=== PATIENT | male | born 1970 | race Caucasian/White ===

== ENCOUNTER → 2024-04-11 08:49 | Outpatient (REF) | payer SELFPAY | LOC: RAD 08:49 | PROVIDERS: ATTENDING PHYSICIAN Internal Medicine Cardiovascular Disease; FAMILY PHYSICIAN Family Medicine | DX: I10 Essential (primary) hypertension (principal); E78.00 Pure hypercholesterolemia, unspecified | CPT/HCPCS: 75571 ==

== ENCOUNTER 2024-04-27 13:18 | Inpatient (IN) | payer BC, SELFPAY ==
[2024-04-27] VITALS (18 sets, daily range): BP systolic 119–145; BP diastolic 67–75; BMI 30.8; BMI 29.9
--- NOTE | 2024-04-27 10:36 | ED.GENMED ---
History of Present Illness
General
Chief Complaint: Abnormal Lab Value
Source: patient and physician (Dr. Villalba)
Exam Limitations: none
Time Seen by Provider: 04/27/24 09:59
Nursing documentation reviewed up to this point in time: agreed with
History of Present Illness
History of Present Illness:
53 yo male w h/o HTN, HLD, BPH, sleep apnea w CPAP, presents for low Hgb. Had out pt labs by PCP Dr. Villalba, Dr Villalba called to report Hgb of 4.6.
Pt denies change in color of stools. Pt has been 'struggling for the past year with shortness of breath if I go up stairs, walk up an incline and I get lightheaded too.' Has been fatigued, no energy past few weeks. Appetite poor, lost 20 lbs in past
6 months. He notes his ankles are swollen by the end of the day in past week.
Denies Chest pain, abd pain.
Did have significant LE swelling after plane ride in February flying to [facility] 'my toes were like hotdogs.' This subsided after 2 days.
Had complete cardiac w/u 5 months ago, echo, nuclear stress test and states his elementary secretary told him no concerns.
Past History
Past History
ED Past Medical History: HTN, Hypercholesterolemia and Other (BPH, sleep apnea uses CPAP)
ED Past Surgical History: Orthopedic
Review of Systems
Review of Systems
Allergies reviewed?: Yes
All Other Systems: ROS reviewed and negative except as documented in HPI and ROS
Constitutional: Reports fatigue; Denies fever
Respiratory: Denies cough or trouble breathing (PHIPPS)
Cardiac: Denies chest pain or palpitations
ABD/GI: Denies abdominal pain, nausea, vomiting or diarrhea
: Reports frequency; Denies dysuria
Musculoskeletal: Reports edema (mild ankle swelling)
Skin: Reports no symptoms
Neurological: Reports other (lightheaded at times); Denies headache
Phy Exam
Physical Exam
Physical Exam:
GENERAL: No acute distress. A&Ox3.
CONSTITUTIONAL: Afebrile.
EYES: clear, conjunctivae pale
ENMT: Pale, moist mucus membranes, Pharynx nl
RESPIRATORY: Regular respirations, nonlabored, lungs clear.
CARDIOVASCULAR: Regular rate and rhythm, no murmurs, no rubs.
GI: Soft, nontender, normal BS
Rectal: No stool in rectal vault, mucus on gloved finger hematest negative
MUSCULOSKELETAL: Moves with ease. Well perfused.
SKIN: Warm, dry, pale
PSYCH: Normal mood and affect. Well kept, interactive and appropriate
NEUROLOGIC: Awake, alert and oriented. No focal neurological deficits
Course
Orders/Labs/Results
Orders:
Orders
04/27/24 Breakfast
NPO
Allow oral meds: Yes
Allow clear liquids: Sips of Clears
04/27/24 10:36
Type+Screen Urgent
Complete Blood Count/With Diff Urgent
Comprehensive Metabolic Panel Urgent
Folate Urgent
Comment: ADDON
Iron Urgent
Comment: ADD ON
Total Iron Binding Urgent
Comment: ADD ON
Vitamin B12 Urgent
Comment: ADDON
04/27/24 10:43
Electrocardiogram (*1) Urgent
Reason for Study: Fatigue / Weakness
EKG- Treatment ONCE
04/27/24 11:07
ABO2 Urgent
BBK Wristband Number:
Associate notified that ABO2 has been ordered: [id number]
Date: 04/27/24
Time: 10:59
Shell Coremaker ID: [id number]
04/27/24 11:26
* Blood Bank Products Urgent
Blood Bank Products: *Packed RBC Leuko(PRBC's)
Quantity: 2
Transfuse Today: Yes
Reason: Anemia
04/27/24 11:27
IV Insert/Care/Rem.- Treatment PRN
04/27/24 12:03
Add On- LAB Urgent
Tests Added?: Iron, total iron binding capacity
04/27/24 12:28
Admit/Transfer Patient As Directed
Co-Sign Provider:
Level of Care: Inpatient admission
Assign to:: Telemetry
Physician / Group: isabel
Diagnosis: anemia
Reason for Telemetry: Arrhythmia
Date to Stop Telemetry: 04/30/24
Time to Stop Telemetry: 11:00
Reason for Hospitalization: anemia
Expected length of stay greater than two midnights?: Yes
ELOS- Estimated Length of Stay in days: 2
I certify the patient meets the requirements for IP care: Yes
PRN Pain Medication Management As Directed
May give lesser potent ordered pain med per pt: Yes
preference::
Protocol:: Medication orders for pain may be administered in a
manner that supports deferring to patient preference
when the pt is:
- Requesting an ordered lesser potent pain medication.
Least to most potent pain medications are defined
as: acetaminophen < NSAID < tramadol < opioids
(morphine, oxycodone, hydromorphone).
- Requesting a lesser dose of the same medication IF
ORDERED.
- Requesting a less intrusive route of administration
if both routes are prescribed by the provider (PO <
IV).
04/27/24 12:30
Code Status As Directed
Resuscitation Status: Full Code
04/27/24 14:44
Pantoprazole [Protonix IV] 40 mg IV BID
04/27/24 14:44
GASTROINTESTINAL CONSULT Routine
Consulting Provider: Tanya Miranda
Was physician already notified: Yes
Activity As Directed
Activity Level: As Tolerated
Pneumatic Compression Sleeves As Directed
Type: Knee high
Vital Signs As Directed
Frequency: Per unit guidelines
US Periph Venous LOWER Ext Dada Routine
Comment:
Reason For Exam: swelling , travel
DX Deep Vein Thrombosis Video Routine
04/27/24 20:00
Carvedilol [Coreg] 12.5 mg PO BID
04/27/24 22:00
Trazodone [Desyrel] 150 mg PO HS
04/28/24 06:00
Complete Blood Count/With Diff IN AM
Comprehensive Metabolic Panel IN AM
04/28/24 08:00
Amlodipine [Norvasc] 5 mg PO DAILY
Ascorbic Acid [Vitamin C] 500 mg PO DAILY
Multivitamin [Theragran] 1 tablet PO DAILY
Rosuvastatin Calcium [Crestor] 40 mg PO DAILY
Tamsulosin [Flomax] 0.4 mg PO DAILY
tadalafil 5 mg PO DAILY
04/30/24 11:00
DC Protocol for Telemetry ONCE
Abnormal Lab Results
04/27/24
10:36
WBC 4.5 L 10^3/uL
(4.8-10.8)
RBC 2.95 L 10^6/uL
(4.70-6.10)
Hgb 4.6 L* g/dL
(13.0-18.0)
Hct 17.7 L* %
(39.0-52.0)
MCV 60.0 L fL
(80.0-94.0)
MCH 15.6 L pg
(27.0-31.0)
MCHC 26.0 L g/dL
(33.0-37.0)
RDW 21.2 H %
(11.5-14.5)
Absolute Lymphs (auto) 0.9 L 10^3/uL
(1.2-3.4)
Lymphocytes % 20.4 L %
(20.5-51.1)
Glucose 100 H mg/dl
(70-99)
Iron 24 L ug/dl
(49-181)
TIBC 476 H ug/dl
(261-462)
% Saturation 5 L %
(20-50)
Crossmatch IS Only See Detail
04/27/24 10:36
04/27/24 10:36
Vital Signs
Initial and Last Documented VS:
Initial Vital Signs
Temp Pulse Resp BP Pulse Ox
98.5 F 77 18 119/71 100
04/27/24 09:41 04/27/24 09:41 04/27/24 09:41 04/27/24 09:41 04/27/24 09:41
Last Documented Vital Signs
Temp Pulse Resp BP Pulse Ox
98.1 F 67 18 144/74 99
04/27/24 14:40 04/27/24 14:40 04/27/24 14:40 04/27/24 14:40 04/27/24 14:30
MDM/Problems Addressed
Differential Diagnosis Includes:
GI bleed, iron deficiency, malignancy
MDM/Problems Addressed:
53 yo male w h/o HTN, HLD, BPH, sleep apnea w CPAP, presents for low Hgb. Had out pt labs by PCP Dr. Villalba, Dr Villalba called to report Hgb of 4.6.
Pt denies change in color of stools. Pt has been 'struggling for the past year with shortness of breath if I go up stairs, walk up an incline and I get lightheaded too.' Has been fatigued, no energy past few weeks. Appetite poor, lost 20 lbs in past
6 months. He notes his ankles are swollen by the end of the day in past week.
Denies Chest pain, abd pain.
Did have significant LE swelling after plane ride in February flying to [facility] 'my toes were like hotdogs.' This subsided after 2 days.
Had complete cardiac w/u 5 months ago, echo, nuclear stress test and states his elementary secretary told him no concerns.
11:15 AM:
Hemoglobin 4.6 indices indicate a chronic element with microcytic hypochromic anemia
Patient is hemodynamically stable, no sign of active bleeding
Plan: Admit, symptomatic chronic anemia, 2 U PRBC's ordered
Hospitalist notified of admission.
*Critical Care Note
Total Time (30-74mins, 75-104mins- exclusive of procedures): Not Applicable
ED Attending Note
-
Portions of this chart may have been created with voice recognition software.� Occasional wrong word or��sound alike� substitutions may have occurred due to the inherent limitations of voice recognition software.
Discharge Plan
Departure
Patient Disposition: Admit
Date of Disposition: 04/27/24
Time of Disposition: 11:37
Admit to: Med/Surg
Presentation/result/management discussed w/ accepting MD/DO: Hospitalist
Condition: Fair
Discharge Problem:
Severe anemia
Interventions
Interventions:
*Risk Screen - Suicide Last Done: 04/27/24 09:41
*General Assessment Last Done: 04/27/24 09:41
*Neglect/Abuse Screening Last Done: 04/27/24 09:41
ED- Fall Risk Assessment Last Done: 04/27/24 12:19
*ED COVID-19 Vaccine History Last Done: 04/27/24 11:03
*Nursing Disposition Last Done: 04/27/24 14:42
Discharge Date and Time
Discharge Date/Time: 04/27/24 14:44
[2024-04-27 10:58] LABS: % Basophils 0.9 % (0-2); % Eosinophils 3.3 % (0-6); % Immature Granulocytes 0.4 % (0-0.5); % Lymphocytes 20.4 % (20.5-51.1); % Monocytes 7.1 % (1.7-9.3); % Neutrophils 67.9 % (42.2-75.2); Absolute Eosinophils 0.2 10^3/uL (0-0.7); Absolute Lymphocytes 0.9 10^3/uL (1.2-3.4); Absolute Monocytes 0.3 10^3/uL (0.1-0.6); Absolute Neutrophils 3.1 10^3/uL (1.4-6.5); Hematocrit 17.7 % (39.0-52.0); Hemoglobin 4.6 g/dL (13.0-18.0); Mean Corpuscular Hgb 15.6 pg (27.0-31.0); Mean Platelet Volume 9.6 fL (7.4-10.4); Nucleated Red Blood Cells % 0.7 % (-); Platelet Count 242 10^3/uL (130-400); Red Blood Cell Count 2.95 10^6/uL (4.70-6.10); Red Cell Dist. Width 21.2 % (11.5-14.5); White Blood Cell Count 4.5 10^3/uL (4.8-10.8)
[2024-04-27 10:59] LABS: ALT (SGPT) 21 U/L (0-50); AST (SGOT) 20 U/L (17-59); Albumin 4.4 g/dl (3.5-5.0); Alkaline Phosphatase 50 U/L (38-126); Blood Urea Nitrogen 15 mg/dl (9-20); Calcium 8.8 mg/dl (8.4-10.2); Carbon Dioxide 23 mmol/L (22-30); Chloride 101 mmol/L (98-107); Glucose 100 mg/dl (70-99); Potassium 4.3 mmol/L (3.5-5.1); Sodium 135 mmol/L (135-145); Total Bilirubin 0.4 mg/dl (0.2-1.3); Total Protein 6.7 g/dl (6.3-8.2); eGFR > 60.00
[2024-04-27 11:25] LABS: Anisocytosis 2+; Hypochromasia 3+; Macrocytosis 2+; Normal RBC Morphology No
[2024-04-27 11:26] LABS: Stomatocytes Occasional; Tear Drop Red Blood Cells 2+
[2024-04-27 12:29] LABS: Iron 24 ug/dl (49-181)
--- NOTE | 2024-04-27 12:33 | HPS.HSE ---
Addendum entered and electronically signed by Nakia Sanchez MD 04/27/24 12:42:
Patient with bilateral lower extremity venous swelling at nighttime. Likely due to venous insufficiency. No asymmetric swelling or pain in the leg to suggest DVT at this time. However we will check venous ultrasound given recent traveling.
Original Note:
Family Physician
-
Family Physician: Jermain Villalba
Chief Complaint
-
shortness of breath
History of Present Illness
53-year-old male past medical history of hypertension, hyperlipidemia, BPH, sleep apnea on CPAP presenting with low hemoglobin. Patient had outpatient labs by primary care physician who called to report hemoglobin 4.6. Patient denies change in
color stools. He has been having shortness of breath for the past year with exertion and lightheadedness. He has been fatigued with no energy. Denies chest pain and denies abdominal pain. He has lost 20 pounds in the past 6 months.
His last colonoscopy was at the age of 49 was 4 years ago and unremarkable.
His ankles are swollen by the end of the day in the past week. He did have significant lower extremity edema after plane ride in February flying to [facility]. This subsided after 2 days.
He had complete cardiac workup 5 months ago due to symptoms with nuclear stress test which was unremarkable.
He drinks alcohol occasionally. He smoked briefly in college.
His mother had colon cancer at the age of 78. His father had bladder cancer.
Medical History
Past Medical History
Past Medical History: Reports Other ( hypertension, hyperlipidemia, BPH, sleep apnea on CPAP)
Past Surgical History: Reports Other (hand surgery )
Social History
Tobacco: Former Smoker
Alcohol: Occasional
Drug: None
Family History
Family History: Not pertinent
Allergies / Home Medications
Allergies reflects when Allergies were last updated in [employer].
Home Medications with original date entered in [employer]
Allergy/Medication List:
Allergies
Allergy/AdvReac Type Severity Reaction Status Date / Time
No Known Allergies Allergy Verified 04/27/24 09:41
Home Medications
amlodipine 5 mg tablet 5 mg PO DAILY 04/27/24
ascorbic acid (vitamin C) 500 mg tablet (Vitamin C) 500 mg PO DAILY 04/27/24
carvedilol 12.5 mg tablet 12.5 mg PO BID 04/27/24
rosuvastatin 40 mg tablet 40 mg PO DAILY 04/27/24
tadalafil 5 mg tablet 5 mg PO DAILY 04/27/24
tamsulosin 0.4 mg capsule 0.4 mg PO DAILY 04/27/24
therapeutic multivitamin 1 tab PO DAILY 04/27/24
trazodone 150 mg tablet 150 mg PO HS 04/27/24
Review of Systems
-
History Source: Patient
A 12 point ROS was completed and negative except as noted: Yes
Constitutional: Reports No Symptoms
EENT: Reports No Symptoms
Respiratory: Reports See HPI
Cardiac: Reports See HPI
Abdomen/GI: Reports See HPI
: Reports No Symptoms
Musculoskeletal: Reports No Symptoms
Skin: Reports No Symptoms
Neurological: Reports No Symptoms
Endocrine: Reports No Symptoms
Hematologic/Lymphatic: Reports No Symptoms
Psych: Reports No Symptoms
Physical Exam
Vital Signs
Vital Signs
Temp Pulse Resp BP Pulse Ox
98.5 F 65 14 125/71 98
04/27/24 09:41 04/27/24 12:15 04/27/24 12:15 04/27/24 12:00 04/27/24 12:15
Physical Exam
General: Well Developed, Well Nourished and No Apparent Distress
HEENT: NormoCephalic, Moist mucous membranes and Atraumatic
Respiratory: Clear
Cardiac: S1/S2 and Regular Rhythm; No Murmur or Rub
GI: Soft, Non Tender, Non Distended and Normal Bowel Sounds; No Organomegaly
Rectal: Deferred by Provider
Musculoskeletal: No Clubbing, No Cyanosis and No Edema
Skin: No Rash
Neuro: Nonfocal/grossly intact
Laboratory Results
-
04/27/24 10:36
04/27/24 10:36
Laboratory Results
Total Bilirubin 0.4 mg/dl (0.2-1.3) 04/27/24 10:36
AST 20 U/L (17-59) 04/27/24 10:36
ALT 21 U/L (0-50) 04/27/24 10:36
Alkaline Phosphatase 50 U/L (38-126) 04/27/24 10:36
Data Reviewed
-
Lab Data: Labs Reviewed by me
Old Records: Reviewed
Impression/Plan
-
IMPRESSION:
PLAN:
# Symptomatic chronic blood loss microcytic anemia/weight loss concern for underlying GI malignancy
-Hemoglobin 4.6
-Type and screen
-2 units blood
-Protonix 40 IV twice daily
-N.p.o. past midnight
-GI consulted
-Check iron studies, B12 and folate
Essential hypertension
-Continue amlodipine
-Continue Coreg
Hyperlipidemia
-Continue statin
BPH
-Continue tadalafil, tamsulosin
Obstructive sleep apnea
-On CPAP
Insomnia
-Continue trazodone
Full code
DVT prophylaxis�SCDs
Clear liquid diet
[2024-04-27 12:38] LABS: Percent Saturation 5 % (20-50); Total Iron Binding Capacity 476 ug/dl (261-462)
--- NOTE | 2024-04-27 15:00 | CON.GI ---
Consultation
-
Date/Time Consultation Requested: 04/27/2024
Date/Time Consultation Performed: 04/27/2024
Requesting Provider: Hospitalist
Performing Provider: Dr. Miranda
Reason for Consultation: Severe microcytic anemia with no overt bleeding
Medical History
Chief Complaint / HPI
Chief Complaint: Abnormal blood work and significant fatigue
History of Present Illness:
History is given both by the patient and his who is an RN
Ferny is a 53-year-old male with history of BPH, otherwise healthy who his mother had colon cancer who is being admitted for severe microcytic anemia who is otherwise stable with no overt bleeding. His labs are consistent with severe microcytic
iron deficiency anemia. Review of his portal from his phone shows a hemoglobin of 10.4 with a low MCV in the summer 2022 that was done in the emergency room while having a kidney stone. Last labs I could find outpatient in 2019 showed normal
hemoglobin of 14. He was unaware of being anemic. His says that he has not been himself since December being severely fatigued even short of breath going up stairs who underwent an outpatient cardiac workup that was unremarkable including an
echo and calcium scoring. This was done at [place].
He denies any GI symptoms with no significant heartburn, dysphagia, abdominal pain. He has noticed mild decrease in appetite with a 20 pound weight loss over the past few months. He did have what sounds like a norovirus the beginning of March.
His bowel movements are otherwise regular brown with no overt bleeding. Denies any overt bleeding from any other source. He states his sister is also iron deficient. No known thalassemia's.
His last colonoscopy done about 4 years ago he states was completely normal and he was told 10 years repeat. Since then his mother was diagnosed with colon cancer and he would have been due next year.
Past Medical History
Past Medical History: Other (Hypertension, BPH, HAKEEM on CPAP)
Past Surgical History: Orthopedic
Social History
Tobacco: Former Smoker
Alcohol: Occasional
Drug: None
Personal:
Living: With Family
Family History
Family History: Cancer (Mother with colon cancer)
Allergies / Home Medications
Allergy/AdvReac Type Severity Reaction Status Date / Time
No Known Allergies Allergy Verified 04/27/24 09:41
�Medication �Instructions �Recorded
amlodipine 5 mg tablet 5 mg PO DAILY Blood Pressure 04/27/24
ascorbic acid (vitamin C) 500 mg 500 mg PO DAILY Supplement 04/27/24
tablet (Vitamin C)
carvedilol 12.5 mg tablet 12.5 mg PO BID Blood Pressure 04/27/24
rosuvastatin 40 mg tablet 40 mg PO DAILY High Cholesterol 04/27/24
tadalafil 5 mg tablet 5 mg PO DAILY BPH 04/27/24
tamsulosin 0.4 mg capsule 0.4 mg PO DAILY BPH 04/27/24
therapeutic multivitamin 1 tab PO DAILY Supplement 04/27/24
trazodone 150 mg tablet 150 mg PO HS mental health/sleep 04/27/24
Review of Systems
-
History Source: Patient and Family
All other systems: A 12 pt ROS was Negative except as stated above in HPI
Vital Signs
Temp Pulse Resp BP Pulse Ox
98.9 F 77 20 142/73 100
04/27/24 14:54 04/27/24 14:54 04/27/24 14:54 04/27/24 14:54 04/27/24 14:54
Physical Exam
Exam
General: Well Developed, Well Nourished, No Apparent Distress and Comfortable
HEENT: Anicteric
Respiratory: Clear
Cardiac: S1/S2
GI: Soft, Non Tender, Non Distended and Normal Bowel Sounds
Neuro: AO x 3
Psych: Calm
Results
WBC 4.5 10^3/uL (4.8-10.8) L 04/27/24 10:36
Hgb 4.6 g/dL (13.0-18.0) L* 04/27/24 10:36
Hct 17.7 % (39.0-52.0) L* 04/27/24 10:36
MCV 60.0 fL (80.0-94.0) L 04/27/24 10:36
Plt Count 242 10^3/uL (130-400) 04/27/24 10:36
Absolute Neuts (auto) 3.1 10^3/uL (1.4-6.5) 04/27/24 10:36
Sodium 135 mmol/L (135-145) 04/27/24 10:36
Potassium 4.3 mmol/L (3.5-5.1) 04/27/24 10:36
Chloride 101 mmol/L (98-107) 04/27/24 10:36
Carbon Dioxide 23 mmol/L (22-30) 04/27/24 10:36
BUN 15 mg/dl (9-20) 04/27/24 10:36
Creatinine 0.9 mg/dL (0.7-1.3) 04/27/24 10:36
Calcium 8.8 mg/dl (8.4-10.2) 04/27/24 10:36
Total Bilirubin 0.4 mg/dl (0.2-1.3) 04/27/24 10:36
AST 20 U/L (17-59) 04/27/24 10:36
ALT 21 U/L (0-50) 04/27/24 10:36
Alkaline Phosphatase 50 U/L (38-126) 04/27/24 10:36
Diagnostic Image Results:
Reviewed CT scan without contrast from [facility] from October 2022 showing no significant abnormalities other than nephrolithiasis
Last GI note also from [facility] from Dr. Avila in 2019 stating patient had no increased risk factors for early colonoscopy
Prior GI Procedures:
EGD:
Colonoscopy: I do not have the records but patient states 4 years ago done with [facility]. He was told it was normal with a 10-year repeat
Assessment / Plan
-
Ferny is a 53-year-old male with history of hypertension, mother had CRC here with symptomatic severe iron deficiency anemia with a hemoglobin of 4.6, MCV in the 60s with no overt bleeding
Outpatient labs -reviewed through [facility] portal into [facility] 04/26/2024 B12 571, folate greater than 20 normal TSH, sed rate 38, normal PSA, hemoglobin 4.6, MCV 62, platelets 268, normal LFTs including bilirubin 0.4, creatinine 1.0
Last hemoglobin from his portal was from 2022 with a hemoglobin of 10, MCV low
Last hemoglobin was in 2019 of 14
# Symptomatic iron deficiency anemia with no overt bleeding and is hemodynamically stable. Symptoms are fatigue and shortness of breath on exertion. Brown stools
-- EGD and colonoscopy tomorrow
--Discussed that the etiology of iron deficiency anemia in an adult is a GI source until proven otherwise
--Patient's wanted hematology consult but I told her we would need to do the endoscopy and colonoscopy first. If those are negative he will need a capsule endoscopy outpatient
-- Clear liquids
-- Patient not on PPI at home with no GI symptoms, once daily PPI is fine
-- Currently getting 2 units of blood
-- Ordered IV iron
I have explained to the patient the procedure of colonoscopy, as well as its potential risks, which are infection, approximately 3 and 1000 chance of bleeding, perforation, oversedation, missing small lesions which is approximately 3 to 5%, and
injuring teeth, lips, or eyes. All of these are rare.
Reviewed outpatient records, discussed with patient and who is an RN at the bedside. Went through his portal with him and his . Spent a total of 72 minutes
Data Reviewed
-
CT Scan: Report Reviewed by me
-
-
Thank you for consultation and allowing me to participate in the patient's care. Please call the site controller GI physician during the after hours with any questions or concerns.
[2024-04-27] MEDS: NSS (PRESERVATIVE FREE) 10 ML IV ×2 (15:31→21:57)
[2024-04-27] MEDS: PROTONIX IV 40 MG IV ×2 (15:31→21:57)
[2024-04-27 15:52] LABS: Folate > 20.0 ng/ml (2.76-20); Vitamin B12 503 pg/ml (239-931)
[2024-04-27] MEDS: NULYTELY SOLUTION 4 LITERS PO (17:45)
[2024-04-27] MEDS: COREG 12.5 MG PO (21:57)
[2024-04-27] MEDS: DESYREL PO (23:00)
[2024-04-28] VITALS (16 sets, daily range): BP systolic 117–144; BP diastolic 61–91; BMI 29.9
[2024-04-28] MEDS: COREG 12.5 MG PO ×2 (07:54→20:39)
[2024-04-28] MEDS: THERAGRAN 1 TABLET PO (07:54)
[2024-04-28] MEDS: NORVASC 5 MG PO (07:54)
[2024-04-28] MEDS: CRESTOR 40 MG PO (07:54)
[2024-04-28] MEDS: PROTONIX IV 40 MG IV ×2 (07:54→20:40)
[2024-04-28] MEDS: NSS (PRESERVATIVE FREE) 10 ML IV ×2 (07:54→20:39)
[2024-04-28] MEDS: VITAMIN C 500 MG PO (07:54)
[2024-04-28] MEDS: FLOMAX 0.4 MG PO (07:54)
[2024-04-28 08:44] LABS: APTT 31.5 Sec (23.4-35.0); PT 14.7 Sec (11.4-14.6)
[2024-04-28 09:07] LABS: % Eosinophils 2.6 % (0-6); % Immature Granulocytes 0.2 % (0-0.5); % Lymphocytes 19.6 % (20.5-51.1); % Monocytes 6.5 % (1.7-9.3); % Neutrophils 70.1 % (42.2-75.2); Absolute Basophils 0.1 10^3/uL (0-0.2); Absolute Eosinophils 0.1 10^3/uL (0-0.7); Absolute Monocytes 0.3 10^3/uL (0.1-0.6); Absolute Neutrophils 3.4 10^3/uL (1.4-6.5); Hemoglobin 6.2 g/dL (13.0-18.0); Mean Corp Hgb Conc. 28.2 g/dL (33.0-37.0); Mean Corpuscular Volume 63.8 fL (80.0-94.0); Mean Platelet Volume 9.5 fL (7.4-10.4); Nucleated Red Blood Cells % 0.4 % (-); Platelet Count 226 10^3/uL (130-400); Red Blood Cell Count 3.45 10^6/uL (4.70-6.10); Red Cell Dist. Width 25.2 % (11.5-14.5); White Blood Cell Count 4.9 10^3/uL (4.8-10.8)
[2024-04-28 09:09] LABS: ALT (SGPT) 18 U/L (0-50); AST (SGOT) 20 U/L (17-59); Albumin 4.2 g/dl (3.5-5.0); Alkaline Phosphatase 48 U/L (38-126); Blood Urea Nitrogen 11 mg/dl (9-20); Calcium 8.8 mg/dl (8.4-10.2); Carbon Dioxide 23 mmol/L (22-30); Chloride 100 mmol/L (98-107); Estimated Creatinine Clearance 106 ml/min; Glucose 90 mg/dl (70-99); Potassium 4.4 mmol/L (3.5-5.1); Sodium 135 mmol/L (135-145); Total Bilirubin 0.6 mg/dl (0.2-1.3); Total Protein 6.5 g/dl (6.3-8.2); eGFR > 60.00
[2024-04-28] MEDS: OMNIPAQUE 50 ML PO (12:41)
--- NOTE | 2024-04-28 13:44 | CON.CRS ---
Consultation
-
Date/Time Consultation Requested: 04/28/2024, 11:45
Date/Time Consultation Performed: 04/28/2024, 14:30
Requesting Provider: Tanya Miranda DO
Performing Provider: Anders Domingo MD
Reason for Consultation: ascending colon mass
Medical History
-
Chief Complaint: anemia
History of Present Illness:
53-year-old male presents to [place] [facility] on 04/27/2024 due to a hemoglobin of 4.6 found on outpatient lab work. The patient has seen his primary care physician, Dr. Villalba, due to shortness of breath and lightheadedness for a year. He also
mentions he has had decreased energy over the past several weeks and lost 20 pounds in the past 6 months. Due to these findings, he had had an outpatient cardiac workup done at [place] that was all negative. His lab work prior to this showed a
hemoglobin of 10.4 back in 2022. His bowel movements are regular and unchanged. He denies any bleeding. His last colonoscopy was done 4 years ago and was normal. Since this was performed, his mother was diagnosed with colon cancer. He denies
previous abdominal surgeries. He is not on any blood thinners.
On arrival to our ER, his hemoglobin was 4.6. He was transfused with 2 units packed red blood cells. His hemoglobin today is 6.2. Given his severe anemia, gastroenterology was consulted and he underwent an endoscopy and colonoscopy today. The
endoscopy showed erosive gastropathy with no bleeding. 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 Given these findings, we have been
consulted for further surgical opinion.
Past Medical History
Past Medical History: HTN, Hypercholesterolemia and Other (bph, sleep apnea)
Past Surgical History: Orthopedic (hand)
Social History
Tobacco: Former Smoker
Alcohol: Occasional
Personal:
Family History
Family History: Cancer (mother - colon cancer (recent diagnosis))
Allergies / Home Medications
Allergy/AdvReac Type Severity Reaction Status Date / Time
No Known Allergies Allergy Verified 04/27/24 15:38
�Medication �Instructions �Recorded �Confirmed �Type
amlodipine 5 mg tablet 5 mg PO DAILY Blood Pressure 04/27/24 04/27/24 History
ascorbic acid (vitamin C) 500 mg 500 mg PO DAILY Supplement 04/27/24 04/27/24 History
tablet (Vitamin C)
carvedilol 12.5 mg tablet 12.5 mg PO BID Blood Pressure 04/27/24 04/27/24 History
rosuvastatin 40 mg tablet 40 mg PO DAILY High Cholesterol 04/27/24 04/27/24 History
tadalafil 5 mg tablet 5 mg PO DAILY BPH 04/27/24 04/27/24 History
tamsulosin 0.4 mg capsule 0.4 mg PO .DAILYHS BPH 04/27/24 04/28/24 History
therapeutic multivitamin 1 tab PO DAILY Supplement 04/27/24 04/27/24 History
trazodone 150 mg tablet 150 mg PO mental health/sleep 04/27/24 04/27/24 History
Review of Systems
-
History Source: Patient
All other systems: Negative unless noted
Constitutional: Weight Loss and Fatigue
Respiratory: Trouble Breathing
A 10 point review of systems was completed, and was negative except as per HPI.
Physical Exam
Vital Signs
Temp 98.3 F 04/28/24 13:13
Pulse 58 04/28/24 13:13
Resp Rate 18 04/28/24 13:13
Blood pressure 144/91 04/28/24 13:13
SaO2 97 04/28/24 12:13
04/27/24 04/28/24 04/29/24
06:59 06:59 06:59
Actual Weight 102.682 kg
Body Mass Index (BMI) 29.9
Lab Results / Allergies
04/28/24 08:20
04/28/24 08:20
WBC 4.9 10^3/uL (4.8-10.8) 04/28/24 08:20
Hgb 6.2 g/dL (13.0-18.0) L* D 04/28/24 08:20
Hct 22.0 % (39.0-52.0) L 04/28/24 08:20
Plt Count 226 10^3/uL (130-400) 04/28/24 08:20
Abs Immat Gran (auto) 0.0 10^3/uL (0-0.05) 04/28/24 08:20
Neutrophils % 70.1 % (42.2-75.2) 04/28/24 08:20
Allergy/AdvReac Type Severity Reaction Status Date / Time
No Known Allergies Allergy Verified 04/27/24 15:38
Physical Exam
General: Well Developed, Well Nourished and No Apparent Distress
GI: Soft, Non Tender and Non Distended
Skin: Warm and Dry
Neuro: AO x 3
Psych: Calm
Data Reviewed
-
Medical Tests (Nuc Med, Echo etc): Report Reviewed by me, Discussed with Physician and Discussed with Patient
Labs: Labs Reviewed by me, Discussed with Physician and Discussed with Patient
Old Records: Reviewed
Assessment / Plan
-
Assessment: 53-year-old male with several month history of weight loss, lightheadedness, and shortness of breath, presents to [facility] yesterday due to a hemoglobin of 4.6 on outpatient labs, status post 3 units packed red blood cells, and
found to have a partially obstructing mass in his ascending colon on colonoscopy
Plan:
-Plan is for a robotic right colectomy given his ascending mass. Arrangements are in place, likely next week.
-CEA pending
-We will follow-up biopsies from colonoscopy
-Await CT chest abdomen and pelvis for metastatic workup
-Remains on clear liquids
-Follow hemoglobin, transfuse as needed
-Discussed the above with patient and at bedside. Dr. Domingo to see later this afternoon for further surgerical discussion.
--- NOTE | 2024-04-28 13:53 | W.PN.HOSP.TC ---
Today's Communication/Plan
-
Monitor vital signs and see plan
Repeat hemoglobin later today and transfuse as necessary
Diet per GI
Colorectal surgery evaluation
[facility]
Discussed with spouse at bedside
Assessment / Plan
Assessment / Plan
General: Well Developed, Well Nourished and No Apparent Distress
HEENT: NormoCephalic, Moist mucous membranes and Atraumatic
Respiratory: Clear
Cardiac: S1/S2 and Regular Rhythm; No Murmur or Rub
GI: Soft, Non Tender, Non Distended and Normal Bowel Sounds
Musculoskeletal: No Clubbing, No Cyanosis and No Edema
Neuro: Nonfocal/grossly intact
Symptomatic chronic blood loss microcytic anemia/weight loss secondary to ascending colon mass
-Hemoglobin 4.6 on admission
Status post 4 units PRBC, continue to monitor hemoglobin
Status post colonoscopy 1/ with ascending colon obstructing mass. Colorectal surgery consulted
[facility] CT ordered
-Protonix 40 IV twice daily
GI following
CEA
Essential hypertension
-Continue amlodipine
-Continue Coreg
Hyperlipidemia
-Continue statin
BPH
-Continue tadalafil, tamsulosin
Obstructive sleep apnea
-On CPAP
Insomnia
-Continue trazodone
Full code
DVT prophylaxis�SCDs
I spent a total of 51 minutes with the patient or on the floor. More than 50% of this time involved counseling and coordination of care.
Anticipated Discharge: > 48 hours
Subjective/Interval History
-
Date of Service: April 28, 2024
denies pain
Objective Data
-
Labs:
Laboratory Results
04/28/24
08:20
WBC 4.9
Hgb 6.2 L* D
Hct 22.0 L
Plt Count 226
PT 14.7 H
INR 1.10
APTT 31.5
Sodium 135
Potassium 4.4
Chloride 100
Carbon Dioxide 23
BUN 11
Creatinine 0.9
Glucose 90
Calcium 8.8
Total Bilirubin 0.6
AST 20
ALT 18
Alkaline Phosphatase 48
Vital Signs:
Vital Signs
Temp Pulse Resp BP Pulse Ox
98.3 F 58 18 144/91 97
04/28/24 13:13 04/28/24 13:13 04/28/24 13:13 04/28/24 13:13 04/28/24 12:13
I&O
04/27/24 04/28/24 04/29/24
06:59 06:59 06:59
Intake Total 4460 / 4460 250 / 250
Balance 4460 / 4460 250 / 250
[2024-04-28] MEDS: FERRLECIT 110 MG IV (16:09)
--- NOTE | 2024-04-28 16:25 | CM ---
talent solutions manager reviewed patient's chart and met with patient and patient states he lives with his spouse in a multilevel home, patient is independent with adl's and ambulation, no dme, patient drives. Patient has CPAP at home.
PCP: Dr Villalba
Pharmacy; [facility] in [place]
Plan; Home no needs.
--- NOTE | 2024-04-28 17:07 | W.PN.UPDATE ---
Update Note
Progress Note Update
I spoke to the patient and regarding the CT results. They are aware.
I also spoke to Dr. Domingo about the case and he will see the patient after office hours.
Patient ok for low residue diet.
--- NOTE | 2024-04-28 17:41 | PTCARENOTE ---
Patient admitted in to room 420. AAOx3, able to make needs known. Oriented to unit and call rashid, instructed to ring for assistance, no OOB without help--Patient agreeable.
[2024-04-28] MEDS: DESYREL 150 MG PO (21:06)
[2024-04-28 21:13] LABS: Hematocrit 27.4 % (39.0-52.0); Hemoglobin 8.2 g/dL (13.0-18.0)
[2024-04-29 03:08] VITALS: BP 131/75
[2024-04-29 07:50] VITALS: BP 134/69
[2024-04-29 08:57] LABS: % Eosinophils 3.1 % (0-6); % Immature Granulocytes 0.6 % (0-0.5); % Lymphocytes 14.8 % (20.5-51.1); % Monocytes 6.6 % (1.7-9.3); % Neutrophils 73.9 % (42.2-75.2); Absolute Basophils 0.1 10^3/uL (0-0.2); Absolute Eosinophils 0.2 10^3/uL (0-0.7); Absolute Lymphocytes 0.8 10^3/uL (1.2-3.4); Absolute Monocytes 0.3 10^3/uL (0.1-0.6); Absolute Neutrophils 3.8 10^3/uL (1.4-6.5); Hematocrit 28.3 % (39.0-52.0); Hemoglobin 8.3 g/dL (13.0-18.0); Mean Corp Hgb Conc. 29.3 g/dL (33.0-37.0); Mean Corpuscular Hgb 19.7 pg (27.0-31.0); Mean Corpuscular Volume 67.2 fL (80.0-94.0); Nucleated Red Blood Cells % 0.4 % (-); Platelet Count 242 10^3/uL (130-400); Red Blood Cell Count 4.21 10^6/uL (4.70-6.10); Red Cell Dist. Width 26.4 % (11.5-14.5); White Blood Cell Count 5.1 10^3/uL (4.8-10.8)
[2024-04-29] MEDS: COREG 12.5 MG PO (09:03)
[2024-04-29] MEDS: NORVASC 5 MG PO (09:04)
[2024-04-29] MEDS: THERAGRAN 1 TABLET PO (09:04)
[2024-04-29] MEDS: CRESTOR 40 MG PO (09:04)
[2024-04-29] MEDS: VITAMIN C 500 MG PO (09:04)
[2024-04-29 09:59] LABS: Blood Urea Nitrogen 9 mg/dl (9-20); Calcium 9.1 mg/dl (8.4-10.2); Carbon Dioxide 24 mmol/L (22-30); Chloride 101 mmol/L (98-107); Estimated Creatinine Clearance 95 ml/min; Glucose 91 mg/dl (70-99); Potassium 4.3 mmol/L (3.5-5.1); Sodium 135 mmol/L (135-145); eGFR > 60.00
[2024-04-29] MEDS: FLOMAX PO (10:02)
[2024-04-29] MEDS: TYLENOL 650 MG PO (10:05)
[2024-04-29] MEDS: NSS (PRESERVATIVE FREE) 10 ML IV (10:29)
[2024-04-29] MEDS: PROTONIX IV 40 MG IV (10:29)
--- NOTE | 2024-04-29 12:12 | W.PN.HOSP.TC ---
Addendum entered and electronically signed by Al San MD 04/29/24 16:04:
Colorectal surgery discussed MRI findings with patient. Discharge today
Time of discharge 38 minutes
Original Note:
Today's Communication/Plan
-
monitor vitals
see plan
MRI abdomen
IV iron
monitor hgb
possible dc after MRI and IV iron if ok with colorectal
Assessment / Plan
Assessment / Plan
General: Well Developed, Well Nourished and No Apparent Distress
HEENT: NormoCephalic, Moist mucous membranes and Atraumatic
Respiratory: Clear
Cardiac: S1/S2 and Regular Rhythm; No Murmur or Rub
GI: Soft, Non Tender, Non Distended and Normal Bowel Sounds
Musculoskeletal: No Clubbing, No Cyanosis and No Edema
Neuro: Nonfocal/grossly intact
Symptomatic chronic blood loss microcytic anemia/weight loss secondary to ascending colon mass
-Hemoglobin 4.6 on admission
Status post 4 units PRBC, continue to monitor hemoglobin. now hgb 8.3. IV iron today
Status post colonoscopy 04/28 with ascending colon obstructing mass. Colorectal surgery follwoing. Patient will follow-up with colorectal surgery outpatient. Patient's spouse also making an appointment with [facility] CT noted; no clear evidence of metastatic disease. 1.3 cm low-attenuation intrahepatic space-occupying lesion. MRI pending
-Protonix 40 IV twice daily
GI following
CEA noted
Essential hypertension
-Continue amlodipine
-Continue Coreg
Hyperlipidemia
-Continue statin
BPH
-Continue tadalafil, tamsulosin
Obstructive sleep apnea
-On CPAP
Insomnia
-Continue trazodone
Full code
DVT prophylaxis�SCDs
Anticipated Discharge: Today
Subjective/Interval History
-
Date of Service: April 29, 2024
denies pain
Objective Data
-
Labs:
Laboratory Results
04/29/24
08:15
WBC 5.1
Hgb 8.3 L
Hct 28.3 L
Plt Count 242
Sodium 135
Potassium 4.3
Chloride 101
Carbon Dioxide 24
BUN 9
Creatinine 1.0
Glucose 91
Calcium 9.1
Vital Signs:
Vital Signs
Temp Pulse Resp BP Pulse Ox
98.5 F 63 18 134/69 94
04/29/24 07:50 04/29/24 09:04 04/29/24 07:50 04/29/24 09:04 04/29/24 10:00
I&O
04/28/24 04/29/24 04/30/24
06:59 06:59 06:59
Intake Total 4460 / 4460 1220 / 1220
Balance 4460 / 4460 1220 / 1220
[2024-04-29 12:22] VITALS: BP 112/62
--- NOTE | 2024-04-29 12:43 | W.PN.CRS1 ---
Today's Communication / Plan
-
mri abdomen
Assessment/Plan
-
Patient is a 53-year-old male with PMH of HTN, HLD, BPH, HAKEEM (on CPAP), insomnia who presents after outpatient lab work showed a hemoglobin of 4.6. He reports several months of worsening dyspnea on exertion associated with a 20 pound weight loss.
He had seen a formation testing operator for his PHIPPS and all workup thus far had been negative for a cardiac etiology. Denies any change in bowel habits or hematochezia. In the ED, and Hb was 4.6. He was given PRBCs x 4 and underwent a colonoscopy by Dr. Miranda
today, which showed diverticulosis and a fungating ascending colon mass, partially obstructing, that was biopsied and tattooed distally. She was able to traverse the lesion with a pediatric colonoscope, but unable to appreciate cecal landmarks. A
CT CAP was ordered and showed a 10 cm segment of wall thickening involving the cecum and ascending colon associated with mesenteric adenopathy and a 1.3 cm hepatic lesion in the posterior inferior right lobe. A CEA was 4.5. He reports a family
history of colon cancer in his mom, diagnosed at 78 years old. His last colonoscopy was 4 years ago at [facility], which she reports was normal and recommended to repeat in 10 years.
AFVSS, ABD soft, nondistended, nontender, no rebound or guarding; no palpable abdominal lesions
WBC 5.1, Hb 8.3, CR 1.0
� Ascending colon mass, concerning for cancer
�Follow-up pathology
�CT CAP without concern for pulmonary mets; 1.3 cm hepatic lesion
�CEA 4.5
�MRI abdomen to further evaluate mets
�Okay for low residue diet
� If hemoglobin stabilizes, okay for DVT PPx from my standpoint
� Appreciate hospitalist
- Surgical plan post MRI
Subjective Data
Subjective Data
Date of Service: April 29, 2024
Patient states he feels well and has no complaints today.
Objective Data
-
Vital Signs
Temp Pulse Resp BP Pulse Ox
98.0 F 61 18 112/62 98
04/29/24 12:22 04/29/24 12:22 04/29/24 12:22 04/29/24 12:22 04/29/24 12:22
Intake & Output
04/28/24 04/29/24 04/30/24
06:59 06:59 06:59
Intake Total 4460 / 4460 1220 / 1220
Balance 4460 / 4460 1220 / 1220
Intake:
Oral fluids 3960 / 3960 720 / 720
Blood Product Amount Infused ( 500 / 500 500 / 500
mL)
Packed Rbc Leukoreduced Unit 250 / 250
[id number]
Packed Rbc Leukoreduced Unit 250 / 250
[id number]
Packed Rbc Leukoreduced Unit 250 / 250
[id number]
Packed Rbc Leukoreduced Unit 250 / 250
[id number]
Other:
Number of approximated MODERATE 6 3
amounts of urine
Number of unmeasured liquid
stools
Rectum 7
Lab Results
04/29/24 08:15
04/29/24 08:15
Physical Exam
-
General: No Acute Distress and AOx3
Abdomen: Soft, Non Distended and Non Tender
Skin: Warm and Dry
[2024-04-29] MEDS: FERRLECIT 110 MG IV (15:00)
--- NOTE | 2024-04-29 15:24 | CM ---
Patient had MRI. Patient has a new diagnosis, plan to follow up with physician, home with spouse when stable.
Plan; Home when stable.
[2024-04-29 15:41] VITALS: BP 124/71
--- NOTE | 2024-04-29 15:45 | W.PN.UPDATE ---
Update Note
Progress Note Update
Spoke with patient over the phone and updated him on the results of the MRI. There are 2 lesions concerning for metastatic disease and 1 lesion that is too small to characterize. None of these lesions appear amenable for intraoperative biopsy. I
discussed his case with Dr. Salinas from oncology who agreed with upfront surgery. Tentatively, I will plan for surgery May 12. From a colorectal standpoint, okay for discharge. Recommended that he follow-up with his PCP for medical
clearance and schedule a preoperative visit with myself in 1 week.
--- NOTE | 2024-04-29 16:03 | W.DCSUMMARY ---
Discharge Summary
Discharge Data
Date of Admission: 04/27/24
Date of Discharge: 04/29/24
-
Pending Results: No
Hospital Course
53-year-old male with past medical history of essential hypertension, hyperlipidemia, BPH, obstructive sleep apnea, insomnia came to the hospital with symptomatic chronic blood loss macrocytic anemia and weight loss. Patient required 4 units of
blood transfusion this hospitalization which improved his hemoglobin. He also required IV iron. He underwent colonoscopy which showed ascending colon obstructing mass. Patient was then seen by colorectal surgery who instructed patient to
follow-up with them closely outpatient for surgery. For further cancer screening patient got gray CT which showed intrahepatic space-occupying lesion in the liver for which MRI was later done which showed possible metastatic disease lesion.
Colorectal surgery discussed the case with oncology who also recommended surgery. Since patient hemoglobin improved and he was able to tolerate diet, he was then discharged home with instructions to follow-up closely with PCP, oncology and
colorectal surgery outpatient.
Discharge Plan
-
Patient Disposition: Home (Routine Discharge)
Discharge Diagnosis/Procedures: Symptomatic chronic blood loss microcytic anemia/weight loss secondary to ascending colon mass
Hepatic lesions concern for metastatic disease
Diet: As tolerated
Activity: As tolerated
Driving Restrictions: As prior to admission
Bathing Restrictions: None
Blood Work: CBC next week with primary care provider
Referrals:
Jermain Villalba, [Family Provider] - in less than 1 week
Yaneli Salinas MD [Active] -
Anders Domingo MD [Active] - in less than 1 week
Prescriptions:
New
pantoprazole [Protonix] 40 mg tablet,delayed release (DR/EC)
40 mg PO DAILY Qty: 30 0RF
Continued
carvedilol 12.5 mg tablet
12.5 mg PO BID
therapeutic multivitamin Tablet
1 tab PO DAILY
amlodipine 5 mg tablet
5 mg PO DAILY
ascorbic acid (vitamin C) [Vitamin C] 500 mg Tablet
500 mg PO DAILY
tamsulosin 0.4 mg capsule
0.4 mg PO .DAILYHS
trazodone 150 mg tablet
150 mg PO HS
rosuvastatin 40 mg tablet
40 mg PO DAILY
tadalafil 5 mg Tablet
5 mg PO DAILY
Discharge Orders:
Discharge Patient (As Directed); Ordered 04/29/24
Ordered By: Al San
Discharge Date and Time
Discharge Date/Time: 04/29/24 19:30
Print Language: SERBIAN
== END 2024-04-29 19:30 | disposition home or self-care (01) | DRG 375 ==
LOC: 4 WEST ACU 13:18
PROVIDERS: Registered Nurse; ADMITTING PHYSICIAN Hospitalist; ATTENDING PHYSICIAN Internal Medicine; CONSULT PHYSICIAN Internal Medicine; CONSULT PHYSICIAN Surgery; EMERGENCY PHYSICIAN Emergency Medicine; FAMILY PHYSICIAN Family Medicine
PROC: 30233N1 Transfusion of Nonautologous Red Blood Cells into Peripheral Vein, Percutaneous Approach (ICD-10-PCS; 2024-04-27)
PROC: 0DB98ZX Excision of Duodenum, Via Natural or Artificial Opening Endoscopic, Diagnostic (ICD-10-PCS; 2024-04-28)
PROC: 0DBK8ZX Excision of Ascending Colon, Via Natural or Artificial Opening Endoscopic, Diagnostic (ICD-10-PCS; 2024-04-28)
PROC: 0DB68ZX Excision of Stomach, Via Natural or Artificial Opening Endoscopic, Diagnostic (ICD-10-PCS; 2024-04-28)
PROC: 3E0H8KZ Introduction of Other Diagnostic Substance into Lower GI, Via Natural or Artificial Opening Endoscopic (ICD-10-PCS; 2024-04-28)
DX: C18.2 Malignant neoplasm of ascending colon (principal); K56.690 Other partial intestinal obstruction; K57.30 Diverticulosis of large intestine without perforation or abscess without bleeding; K64.9 Unspecified hemorrhoids; K44.9 Diaphragmatic hernia without obstruction or gangrene; K26.9 Duodenal ulcer, unspecified as acute or chronic, without hemorrhage or perforation; K29.50 Unspecified chronic gastritis without bleeding; B96.81 Helicobacter pylori [H. pylori] as the cause of diseases classified elsewhere; K29.80 Duodenitis without bleeding; I10 Essential (primary) hypertension; E78.00 Pure hypercholesterolemia, unspecified; G47.33 Obstructive sleep apnea (adult) (pediatric); N40.0 Benign prostatic hyperplasia without lower urinary tract symptoms; D50.0 Iron deficiency anemia secondary to blood loss (chronic); I87.2 Venous insufficiency (chronic) (peripheral); Z80.0 Family history of malignant neoplasm of digestive organs; Z87.891 Personal history of nicotine dependence
CPT/HCPCS: 88305; 36430; 71260; 74177; 74183; 80048; 80053; 82378; 82607; 82746; 83540; 83550; 85014; 85018; 85025; 85610; 85730; 86850; 86900; 86901; 86920; 88342; 93005; 93970; 99285; A9575; J2916; P9016; Q9967

== ENCOUNTER 2024-05-01 15:58 | Emergency (ER) | payer BC, SELFPAY ==
[2024-05-01 16:04] VITALS: BP 118/75
[2024-05-01 16:45] LABS: % Basophils 0.9 % (0-2); % Eosinophils 3.6 % (0-6); % Immature Granulocytes 0.4 % (0-0.5); % Lymphocytes 16.8 % (20.5-51.1); % Monocytes 7.6 % (1.7-9.3); % Neutrophils 70.7 % (42.2-75.2); ALT (SGPT) 14 U/L (0-50); AST (SGOT) 20 U/L (17-59); Absolute Basophils 0.1 10^3/uL (0-0.2); Absolute Eosinophils 0.3 10^3/uL (0-0.7); Absolute Lymphocytes 1.2 10^3/uL (1.2-3.4); Absolute Monocytes 0.6 10^3/uL (0.1-0.6); Absolute Neutrophils 5.2 10^3/uL (1.4-6.5); Albumin 4.6 g/dl (3.5-5.0); Alkaline Phosphatase 57 U/L (38-126); Blood Urea Nitrogen 17 mg/dl (9-20); Calcium 9.2 mg/dl (8.4-10.2); Carbon Dioxide 23 mmol/L (22-30); Chloride 101 mmol/L (98-107); Glucose 90 mg/dl (70-99); Hematocrit 29.2 % (39.0-52.0); Hemoglobin 8.4 g/dL (13.0-18.0); Mean Corp Hgb Conc. 28.8 g/dL (33.0-37.0); Mean Corpuscular Hgb 19.9 pg (27.0-31.0); Mean Corpuscular Volume 69.2 fL (80.0-94.0); Nucleated Red Blood Cells % 0 % (-); Platelet Count 285 10^3/uL (130-400); Potassium 4.6 mmol/L (3.5-5.1); Red Blood Cell Count 4.22 10^6/uL (4.70-6.10); Sodium 136 mmol/L (135-145); Total Bilirubin 0.7 mg/dl (0.2-1.3); Total Protein 7.1 g/dl (6.3-8.2); White Blood Cell Count 7.4 10^3/uL (4.8-10.8); eGFR > 60.00
== END 2024-05-01 18:05 | disposition left against medical advice (07) ==
LOC: EMR 15:58
PROVIDERS: EMERGENCY PHYSICIAN Emergency Medicine
DX: R53.1 Weakness (principal); R10.9 Unspecified abdominal pain; Z53.21 Procedure and treatment not carried out due to patient leaving prior to being seen by health care provider
CPT/HCPCS: 99281; 80053; 85025; 86850; 86900; 86901

== ENCOUNTER 2024-05-09 06:48 | Outpatient (REF) | payer BC, SELFPAY ==
[2024-05-09] VITALS (12 sets, daily range): BP systolic 56–127; BP diastolic 63–82
== END 2024-05-09 12:40 | disposition home or self-care (01) ==
LOC: RADI 06:48
PROVIDERS: ATTENDING PHYSICIAN Surgery; FAMILY PHYSICIAN Family Medicine
DX: C78.7 Secondary malignant neoplasm of liver and intrahepatic bile duct (principal); C18.9 Malignant neoplasm of colon, unspecified
CPT/HCPCS: 88307; 47000; 76942; 88333; 88342; 99152; 99153

== ENCOUNTER → 2024-06-30 12:33 | Outpatient (REF) | payer BC, SELFPAY | LOC: HWRAD 12:33 | PROVIDERS: ATTENDING PHYSICIAN Family Medicine | DX: E04.1 Nontoxic single thyroid nodule (principal) | CPT/HCPCS: 76536 ==